=== PATIENT | female | born 1965 | race African-American/Black ===

== ENCOUNTER 2017-06-20 09:54 | Outpatient (CLI) | payer OTHER ==
--- NOTE | 2017-06-20 10:54 | XRay Report ---
BILATERAL KNEE RADIOGRAPHS INDICATION: Breast cancer, status post bilateral mastectomy. Hepatitis B. COMPARISON: None similar. FINDINGS: AP and lateral radiographs of both knees demonstrate intact articulation. No significant degenerative spurring or abnormal density in the joint space. No suprapatellar effusions. CONCLUSION: No significant bilateral knee radiographic abnormality, as described. Thank you for the opportunity to participate in this patient's care.
--- NOTE | 2017-06-20 11:02 | XRay Report ---
LUMBAR SPINE RADIOGRAPHS INDICATION: Left arm lymphedema, breast cancer. COMPARISON: None similar. FINDINGS: AP and lateral lumbar spine radiographs demonstrate demineralized bones with normal vertebral body stature and alignment. Slight lower lumbar spurring. Fairly preserved disc heights. Nonobstructive bowel gas pattern. Intact SI joints. Numerous abdominal surgical clips. Clear visualized lung bases. Some extrinsic clothing artifacts. CONCLUSION: No acute radiographic abnormality with few degenerative and postsurgical changes noted, as described. Thank you for the opportunity to participate in this patient's care.
== END 2017-06-20 09:55 | disposition home or self-care (01) ==
LOC: XRAY 09:54
PROVIDERS: ATTEND Internal Medicine
DX: M47.896 Other spondylosis, lumbar region (principal); I89.0 Lymphedema, not elsewhere classified; Z85.3 Personal history of malignant neoplasm of breast; Z90.12 Acquired absence of left breast and nipple; B19.10 Unspecified viral hepatitis B without hepatic coma
CPT/HCPCS: 72100